=== PATIENT | female | born 2000 | race Caucasian/White ===

== ENCOUNTER → 2021-01-22 01:05 | Outpatient (CLI) | payer BC, SELFPAY ==
[2021-01-22 18:54] LABS: SARS-CoV-2 RNA PCR Negative
== END ==
PROVIDERS: PCP Family Medicine; Visit Provider Obstetrics & Gynecology
DX: Z01.812 Encounter for preprocedural laboratory examination (principal); Z20.822 Contact with and (suspected) exposure to COVID-19
CPT/HCPCS: C9803; U0003; U0005

== ENCOUNTER 2021-01-26 00:19 | Day surgery (SDC) | payer BC, SELFPAY ==
[2021-01-18 18:05] VITALS: BMI 31.1
[2021-01-26] VITALS (13 sets, daily range): BP systolic 93–129; BP diastolic 56–77; PULSE 58–110; RESP 12–18; TEMP 36.6–37.3; O2SAT 96–100
[2021-01-26] MEDS: ACETAMINOPHEN 500 MG TABLET 1000 MG PO (07:48)
[2021-01-26] MEDS: LACTATED RINGERS 1,000 ML 30 ML IV CONT ×3 (07:54→11:58)
[2021-01-26] MEDS: KETOROLAC 15 MG/ML VIAL (*BKC) IV PUSH (07:55)
--- NOTE | 2021-01-26 08:26 | P.PNAN_ITS ---
Anes - Initial Pre Proc Eval Procedure: Operation Date: 01/26/21 09:30 Proposed Procedures p Diagnostic Laparoscopy - Catalino Eubanks MD Date/Time: 01/26/21 08:26 Surgeon: Catalino Eubanks MD Pre Op Diagnosis: pelvic pain Patient Data Age: 20 Gender: F Height: 5 ft 2 in Weight: 83.1 kg Last Vital Signs Temp 97.9 F 01/26/21 07:21 Pulse 110 H 01/26/21 07:21 Resp 18 01/26/21 07:21 BP 125/77 01/26/21 07:21 Pulse Ox 100 01/26/21 07:21 Allergies Allergy/AdvReac Type Severity Reaction Status Date / Time latex Allergy Intermediate Rash Verified 01/26/21 08:04 Home Medications Medication Instructions Recorded Confirmed Type No Home Medications 01/18/21 01/26/21 History Patient hx anesthesia problems: none Family hx anesthesia problems: none [facility] Past Medical History Medical History (Updated 01/26/21 @ 08:25 by Kael Fleming MD) Migraine Social History Social History Smoking status: Never smoker Living arrangements: with family Anes - Eval Final PreProcedure Day of Procedure 01/26/21 08:26 Patient weight: overweight Heart: regular rate and rhythm Lungs: clear to auscultation Airway: Mallampati scale class II Neurological: alert and oriented Last oral intake: >/= 8 hours ASA classification: II Emergent: no Anesthetic plan: proceed Anesthesia type and monitoring: general ETT and standard monitoring Informed Consent: The patient's anesthetic plan and its attendant risks and benefits were discussed with the patient/family/POA. Questions were solicited and answers provided to the satisfaction of the patient/family/POA.
--- NOTE | 2021-01-26 08:34 | WPDHPUPDATE1 ---
History and Physical Update Update Date/Time: 01/26/21 08:34 History and Physical has been reviewed, including an updated exam of the patient. There are NO changes in the patient's condition. Risks, benefits, and alternatives have been discussed and questions answered. Patient agrees to proceed with procedure.
--- NOTE | 2021-01-26 11:09 | P.OP_ITS ---
Procedure Note - Detailed Date of procedure: 01/26/21 Pre-op diagnosis: pelvic pain Post-op diagnosis: same (Pelvic pain, constipation, endometriosis, ovarian cysts, paratubal cyst, hypervascularity the anterior cul-de-sac.) Procedure performed: Laparoscopic resection of endometriosis-radical resection - Required 1.5 hours of dissection. Ovarian cystectomy-bilateral. Peritoneal biopsy. Resection of paratubal cyst. Description of procedure: The patient was taken the operating room. She was prepped and draped in the dorsal lithotomy position after induction of general anesthesia. A 5 mm left upper quadrant incision was made in the abdominal skin with a scalpel. A 5 mm trocar was inserted the intra-abdominal cavity under direct visualization of the scope. A 5 mm left lower quadrant incision was made with the scalp on the abdominal skin and a 5 mm trocar was inserted the intra- abdominal cavity under direct visualization of the scope. A 5 mm infraumbilical incision was made with scalpel and a 5 mm trocar was inserted into the intra- abdominal cavity under direct visualization of the scope. Paratubal cysts on the right ovary were removed using cautery and scissors. The ovaries were suspended using Ronnie-Leann needle placed through the abdomen bilaterally with an 0 Vicryl. The Ronnie Bola needle was pushed through the ovary and the suture was grasped on the other side the ovary and pulled back through the skin and was held in place with a hemostat. This was done in a bilateral fashion. A HARSH manipulator was placed in the intrauterine cavity using a speculum and tenaculum. The peritoneum in the posterior cul-de-sac was removed completely with the exception of the perineum over the rectum. It was removed from the perirectal area to laterally to the fallopian tube, and it was removed from the uterine artery superiorly to the pelvic brim. The ureters were dissected out and were observable throughout the procedure. The perineum on the anterior uterus and broad ligament was removed. A a 1-2 sq cm area the perineum was removed using cautery and sharp dissection. In a bilateral fashion multiple cysts on the ovaries were drained and cauterized. There was many small cysts on the ovaries bilaterally. Interceed was placed over the emerald pelvis sees in the posterior cul-de-sac. All this required over 2 hours. Prior to placement of the Interceed, the pelvis was irrigated with copious amounts of normal saline. The pneumoperitoneum was reduced. The trocars were removed. The patient was taken recovery room stable condition. Sponge lap and needle counts were correct x2. Anesthesia: GETA Surgeon: Catalino Eubanks MD Estimated blood loss (mL): 50 Drains: No Packing: No Pathology: yes Complications: No immediate complications Condition: stable Disposition: PACU Findings: The rectum and sigmoid colon had pronounced volume of stool. There was hypervascularity of the anterior cul-de-sac, find vessels covered the broad ligament and uterus extending laterally to the pelvic sidewalls. There were paratubal cysts on the right ovary, small. There were multiple small cysts in both ovaries. There were cysts throughout each ovary. There appeared to be endometriosis in a fine vesicular presentation in the posterior cul-de-sac near the uterine arteries.
[2021-01-26] MEDS: fentaNYL CITRATE INJ (*CRX) 100 MCG/2 ML VIAL 25 MCG IV PUSH ×7 (11:39→13:19)
--- NOTE | 2021-01-26 12:03 | SUR.PHASEI ---
PT TEARFUL. STATES PAIN REMAINS 10/10. DROWSY, RESP EVEN UNLABORED. FENTANYL GIVEN PRN. PT ASSISTED TO LAY ON LEFT SIDE FOR COMFORT. WARM BLANKET APPLIED TO LOW ABDOMEN.
--- NOTE | 2021-01-26 12:15 | SUR.PHASEI ---
1215; PT SLEEPING. RESP EVEN UNLABORED.
--- NOTE | 2021-01-26 12:41 | SUR.PHASEI ---
PT CONTINUES SLEEPING.
--- NOTE | 2021-01-26 13:04 | SUR.PHASEI ---
1300; PT AROUSES EASILY. STATES PAIN MAINLY TO LEFT SIDE NOW. ABDOMEN SOFT. PT READY TO SEE MOTHER.
[2021-01-26] MEDS: ONDANSETRON INJ 4 MG/2 ML VIAL IV PUSH (13:49)
[2021-01-26] MEDS: oxyCODONE HCL (*CRX) 5 MG TAB IR PO (14:05)
== END 2021-01-26 15:04 | disposition home or self-care (01) ==
PROVIDERS: PCP Family Medicine; Visit Provider Obstetrics & Gynecology
PROC: (CPT 49320; principal; 2021-01-26 09:30)
DX: R10.2 Pelvic and perineal pain (principal); N80.3 Endometriosis of pelvic peritoneum; N83.8 Other noninflammatory disorders of ovary, fallopian tube and broad ligament; K66.8 Other specified disorders of peritoneum; K59.00 Constipation, unspecified; N73.6 Female pelvic peritoneal adhesions (postinfective); N83.292 Other ovarian cyst, left side; N83.291 Other ovarian cyst, right side
CPT/HCPCS: 58662; 88305; A9270; J0330; J1100; J1885; J2250; J2370; J2405; J2704; J3010; J7120

== ENCOUNTER → 2022-06-19 11:27 | Outpatient (CLI) | payer BC, SELFPAY ==
--- NOTE | ~2022-06-19 | XR_ITS ---
EXAM: XR pelvis 1-2V DATE: 06/19/2022 12:22 HISTORY: LBP W/ leg numbness . COMPARISON: None available. FINDINGS: Lateralmost aspect of the left greater trochanter is excluded from the [id number]. Enedelia l mineralization. No fracture or dislocation. No lytic or blastic lesion. Joint spaces are maintained . No erosion or periosteal change. Soft tissues within normal limits. IMPRESSION: Incomplete visualization of the left greater trochanter due to [id number] restriction. Within that constraint, pelvic radiograph findings are normal. Reviewed, dictated and finalized at location K. IMPRESSION: Incomplete visualization of the left greater trochanter due to fiel d-of-view restriction. Within that constraint, pelvic radiograph findings are n ormal.
--- NOTE | ~2022-06-19 | XR_ITS ---
EXAM: XR lumbar spine 2-3V DATE: 06/19/2022 12:22 HISTORY: LBP NO RECENT INJURY . COMPARISON: None available. FINDINGS: 5 nonrib-bearing lumbar-type vertebral bodies. Pedicles intact. Normal vertebral body alig nment. Vertebral body heights preserved. Disc spaces maintained. L4-5 and L5-S1 facet sclerosis. No f racture or dislocation. IMPRESSION: Mild lower lumbar facet arthropathy. Reviewed, dictated and finalized at location K.
== END ==
PROVIDERS: PCP Family Medicine
DX: M54.50 Low back pain, unspecified (principal); R20.0 Anesthesia of skin
CPT/HCPCS: 72100; 72170